=== PATIENT | male | born 1955 | race Caucasian/White ===

== ENCOUNTER 2023-10-30 13:00 | Outpatient (RCR) | payer OTHER ==
[~2023-10-30 13:00] MED LIST: CEPHALEXIN500 M1 PO; NO DOLO50 MG/ML IM; NO HOME MEDICATIONS; NORCO 325 MG-7.1 TAB PO; PRILOSEC 20MG20 MG PO; VITAMIN
== END 2023-11-11 | disposition home or self-care (01) ==
LOC: PT.GENESIS
DX: M47.817 Spondylosis without myelopathy or radiculopathy, lumbosacral region (principal)

== ENCOUNTER 2023-11-14 10:15 | Outpatient (RCR) | payer OTHER | END 2023-12-12 | disposition home or self-care (01) | LOC: PT.GENESIS | DX: M47.817 Spondylosis without myelopathy or radiculopathy, lumbosacral region (principal) ==